=== PATIENT | male | born 1980 | race Caucasian/White ===

== ENCOUNTER 2020-10-02 09:05 | Emergency (ER) | payer OTHER ==
[~2020-10-02] VITALS: Ht 177.8 cm; Wt 102.1 kg
[2020-10-02 09:32] LABS: ABSOLUTE BASOPHILS 0.1 thou/uL (0.0-0.2); ABSOLUTE EOSINOPHILS 0.3 thou/uL (0.0-0.7); ABSOLUTE LYMPHOCYTES 3.4 thou/uL (0.8-5.3); ABSOLUTE NEUTROPHILS 7.8 thou/uL (1.6-8.1); EOSINOPHILS 2.4 %; HEMOGLOBIN 15.6 gm/dL (14.0-18.0); LYMPHOCYTES 26.7 %; MCH 29.4 pg (26.0-34.0); MCHC 33.9 g/dL (28.0-37.0); MCV 86.9 fL (80.0-100.0); MPV 9.2 fl. (7.2-11.1); NUCLEATED RBCS 0 /100WBC; PLATELET COUNT* 232 thou/uL (150-400); POLYS 61.9 %; RBC 5.29 mil/uL (4.50-6.00); RDW-CV 13.2 % (10.5-14.5); WBC 12.6 thou/uL (4.0-11.0)
[2020-10-02 09:38] LABS: CALCIUM 8.4 mg/dL (8.5-10.1); CREATININE 1.1 mg/dL (0.6-1.3); POTASSIUM 3.5 mmol/L (3.5-5.1)
[2020-10-02 09:46] LABS: INR 0.9; PROTIME 10.1 Seconds (9.20-11.50)
[2020-10-02 09:48] LABS: ALBUMIN 3.9 g/dL (3.4-5.0); TOTAL BILIRUBIN 0.5 mg/dL (<0.1-1.0); TOTAL PROTEIN 7.6 g/dL (6.4-8.2)
[2020-10-02] MEDS ORDERED: CARAFATE1 GM PO (11:56)
[2020-10-02 12:15] VITALS: BP 137/83
--- NOTE | 2020-10-02 16:42 | EKG ---
[place] [address] ELECTROCARDIOGRAM REPORT Name: IGNACIO BORJAS Room: [facility]#: [id number] Admission: 10/02/20 Attend Phys: Discharge: 10/02/20 Date of : 78 Date of Service: 10/02/20906 Report #: [id number] THIS REPORT FOR: //name// [facility] ED Test Date: 2020-10-02 Test Time: 09:07:25 Pat Name: IGNACIO BORJAS Department: Room: Gender: Supervisor [employer]: ID : [id number] Requested By: Joseph Ko Order Number: [id number] MD: Luciano Cooley Measurements Intervals [place] Rate: 105 P: 65 LA: 180 QRS: -3 QRSD: 92 T: 49 QT: 333 QTc: 441 Interpretive Statements Sinus tachycardia Probable left atrial enlargement Baseline wander in lead(s) III No previous ECG available for comparison Electronically Signed On 10-02-2020 16:42:22 [employer] by Luciano Cooley [email or web address] <ELECTRONICALLY SIGNED> By: Luciano Cooley MD, [facility] 10/02/20 1642 0907 09 Luciano Cooley MD, [facility] /EPI
== END 2020-10-02 12:16 | disposition home or self-care (01) ==
LOC: M.ERS 09:05
PROVIDERS: Emergency Medicine Emergency Medical Services
DX: R07.9 Chest pain, unspecified (principal); Z20.828 Contact with and (suspected) exposure to other viral communicable diseases; R10.13 Epigastric pain; R11.2 Nausea with vomiting, unspecified; Z88.6 Allergy status to analgesic agent; Z88.0 Allergy status to penicillin; Z90.49 Acquired absence of other specified parts of digestive tract